=== PATIENT | female | born 1990 | race Caucasian/White ===

== ENCOUNTER 2017-12-24 09:58 | Emergency (ER) | payer OTHER ==
[2017-12-24 10:08] VITALS: BMI 36.3
--- NOTE | 2017-12-24 10:17 | PDOC ---
History of Present Illness - General Chief Complaint: Pain Stated Complaint: ABD PAIN/BACK PAIN Time Seen by Provider: 12/24/17 10:16 History Source: Patient Exam Limitations: Language Barrier - History of Present Illness Initial Comments: 12/24/17 10:51 27F with no PMH presents to the ER with a 4 day history of abdominal pain and a 3 hour history of vomiting. Patient states the vomiting began this morning at 7am and then she vomited again at 930am. The abdominal pain is epigastric and radiates to the back. She states the vomitus was green and yellow. She has been able to tolerate PO but did not eat or drink anything this AM because she vomited. She denies fever chills chest pain or shortness of breath. She denies diarrhea or constipation. She denies hematuria or dysuria. The patient recently had a laparoscopic cholecystectomy on 12/01/[address] Olson at [facility]. Past History - Travel Traveled outside of the country in the last 30 days: No Close contact w/someone who was outside of country & ill: No - Past Medical History Allergies/Adverse Reactions: Allergies Allergy/AdvReac Type Severity Reaction Status Date / Time No Known Allergies Allergy Verified 12/24/17 10:08 Home Medications: Ambulatory Orders NK [No Known Home Medication] 12/24/17 Anemia: No Asthma: No Cancer: No Cardiac Disorders: No Hx Myocardial Infarction: No CVA: No COPD: No Other medical history: denies - Immunization History Immunization Up to Date: Yes - Suicide/Smoking/Psychosocial Hx Smoking History: Never smoked Information on smoking cessation initiated: No Hx Alcohol Use: No Drug/Substance Use Hx: No Review of Systems - Review of Systems Able to Perform ROS?: Yes Is the patient limited Slovak proficient: Yes Constitutional: Yes: Chills HEENTM: Yes: Symptoms Reported Respiratory: Yes: Symptoms reported Cardiac (ROS): Yes: Symptoms Reported ABD/GI: Yes: Vomiting (bilious), Other (pain radiating to back) : No: Symptoms Reported, See HPI, Burning, Dysuria, Discharge, Frequency, Flank Pain, Hematuria, Incontinence, Pain, Urgency, Testicular Mass, Testicular Swelling, Lesions, Testicular Pain, Other Musculoskeletal: No: Symptoms Reported, See HPI, Back Pain, Gout, Joint Pain, Joint Swelling, Muscle Pain, Muscle Weakness, Neck Pain, Joint Stiffness, Other Integumentary: No: Symptoms Reported, See HPI, Bruising, Change in Color, Change in Hair/Nails, Dryness, Erythema, Flushing, Lesions, Lumps, Pallor, Pruritus, Rash, Sweating, Other Endocrine: No: Symptoms Reported, See HPI, Excessive Sweating, Flushing, Intolerance to Cold, Intolerance to Heat, Increased Hunger, Increased Thirst, Increased Urine, Unexplained Weight Gain, Unexplained Weight Loss, Change in Weight, Other *Physical Exam - Vital Signs Last Vital Signs Temp Pulse Resp BP Pulse Ox 98.1 F 86 20 115/62 99 12/24/17 10:04 12/24/17 10:04 12/24/17 10:04 12/24/17 10:04 12/24/17 10:04 - Physical Exam General Appearance: Yes: Appropriately Dressed, Obese, Other (comfortable in bed ). No: Apparent Distress HEENT: positive: EOMI. negative: Scleral Icterus (R), Scleral Icterus (L) Neck: positive: Trachea midline, Supple Respiratory/Chest: positive: Lungs Clear, Normal Breath Sounds. 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 Given recent laparoscopy cholecystectomy, physical exam. and history concern for gallstone pancreatitis. will do: CBC CMP Mg UA UCx Upreg 1 liter NS bolus IV tylenol Zofran reassess 12/24/17 11:40 spoke with [facility] surgeon who agrees with the plan for work up for retained stone and possible gallstone pancreatitis 12/24/17 12:59 Labs reviewed elevated WBC sount 12.4 LFTs elevated Surgeon called back and states LFTs were elevated and trending down before discharge. He informed me she had choledocholithiais and had an ERCP with stenting Will get CT scan to evaluate stent. will order MRCP will consult GI Surgeon Dr. Olson [phone] He would like to be called and updated 12/24/17 13:07 Patient signed out to Dr. Pham
[2017-12-24] MEDS ORDERED: SODIUM CHLORIDE 1,000 ML IV STA ×3 (10:31→20:11)
[2017-12-24] MEDS ORDERED: ONDANSETRON 4 MG/2 ML VIAL IVPUSH ONE ×2 (10:40→13:54)
[2017-12-24] MEDS ORDERED: ACETAMINOPHEN 1000 MG/100 ML VIAL (NON FORMULARY) IVPB ONE (10:40)
[2017-12-24] MEDS ORDERED: ACETAMINOPHEN INJECTION 100 ML IVPB ONE (10:56)
[2017-12-24] MEDS ORDERED: ONDANSETRON 4 MG/2 ML VIAL ONE ×2 (10:56→13:58)
[2017-12-24 10:57] LABS: BASO % 0.3 % (0-2.0); EOS % 0.4 % (0-4.5); HEMATOCRIT 37.2 % (32.4-45.2); HEMOGLOBIN 12.4 GM/dL (10.7-15.3); LYMPH % 12.6 % (8-40); MCH 26.9 pg (25.7-33.7); MCHC 33.2 g/dl (32.0-36.0); MEAN CELL VOLUME 80.9 fl (80-96); MEAN PLT VOLUME 7.7 fl (7.5-11.1); MONO % 5.4 % (3.8-10.2); NEUT % 81.3 % (42.8-82.8); PLATELET COUNT 361 K/MM3 (134-434); RDW 14.3 % (11.6-15.6); WHITE BLOOD COUNT 12.3 K/mm3 (4.0-10.0)
--- NOTE | 2017-12-24 11:01 | PDOC ---
Attending Attestation - Resident Resident Name: BonitaMeghanlily - ED Attending Attestation I have performed the following: I have examined & evaluated the patient, The case was reviewed & discussed with the resident, I agree w/resident's findings & plan, Exceptions are as noted - HPI HPI: 12/24/17 11:11 The patient is a 27 year old female with recent cholecystectomy 12/03/17 who presents to the emergency department for evaluation of epigastric pain. The patient reports a 4 day history of moderate epigastric pain radiating around the R flank. 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 Pt reports having 1 non bloody BM yesterday, denies diarrhea, constipation , and changes to color of stool. The patient denies chest pain, shortness of breath, headache, and dizziness. Denies fever, urinary frequency/urgency, dysuria, and hematuria. - Physicial Exam PE: 12/24/17 11:14 GENERAL: Awake, alert, and fully oriented, in no acute distress HEAD: No signs of trauma EYES: PERRLA, EOMI, sclera anicteric, conjunctiva clear ENT: Auricles normal inspection, hearing grossly normal, nares patent, oropharynx clear without exudates. Moist mucosa NECK: Normal ROM, supple, no lymphadenopathy, JVD, or masses LUNGS: Breath sounds equal, clear to auscultation bilaterally. No wheezes, and no crackles HEART: Regular rate and rhythm, normal S1 and S2, no murmurs, rubs or gallops ABDOMEN: Soft, +mild RUQ ttp with neg nava sign, +mild epigastric ttp, normoactive bowel sounds. No guarding, no rebound. No masses EXTREMITIES: Normal range of motion, no edema. No clubbing or cyanosis. No cords , erythema, or tenderness BACK: No midline spinal tenderness in cervical/thoracic/lumbar region NEUROLOGICAL: Normal speech, cranial nerves intact, negative pronator drift, 5/ 5 strength in all 4 extremities, normal sensation to light touch in all 4 extremities, normal cerebellar exam, normal gait, normal reflexes and tone SKIN: Warm, Dry, normal turgor, no rashes or lesions noted. - Medical Decision Making 12/24/17 10:55 27yo F recent cholecystectomy at [facility] presents to the ED with 8/10 recurrent epigastric radiating around the R flank pain. Vitals wnl. Exam with mild epigastric and RUQ ttp. DDx IBNLT retained stone, pancreatitis, gastritis. Plan: -upt -labs -discuss with [facility] surgeon -consider imaging -pain control -UA -reassess 12/24/17 13:56 Case discussed with surgeon from [facility] by Dr. Mesa Labs with elevated LFTs, leukocytosis 13 He reports pt also had a stent placed which pt was unaware of Recommends we consult our GI doc Case discussed with Dr. Matson who recommends MRI, asked us to call Dr. Dixon for the GI c/s Dr. Dixon c/s Recommends CTAP to evaluate stent After initial relief with tylenol, pt reports recurrent pain and had 1 episode of emesis BP also down to 90s systolic In light of her stent, recent instrumentation, white count to 13, borderline low BP, pt covered with zosyn Also given morphine, zofran fluids for sx control Pt on ED obs while CTAP is done 12/24/17 16:19 CTAP w stent migration Discussed with Dr. Dixon who recommends transfer to [facility] Case discussed with [facility] transfer center by Dr. Pham, pt accepted for transfer Pt currently at [facility] scan, once back will be consented
[2017-12-24 11:21] LABS: ALBUMIN 3.9 g/dl (3.4-5.0); ANION GAP 11 (8-16); BLOOD UREA NITROGEN 14 mg/dL (7-18); CALCIUM 9.3 mg/dL (8.5-10.1); CHLORIDE 109 mmol/L (98-107); CO2 24 mmol/L (21-32); CREATININE 0.7 mg/dL (0.55-1.02); GLUCOSE,RANDOM 91 mg/dL (74-106); MAGNESIUM 2.2 mg/dL (1.8-2.4); POTASSIUM 4.1 mmol/L (3.5-5.1); SGPT/ALT 348 U/L (12-78); SODIUM 144 mmol/L (136-145)
[2017-12-24 11:41] LABS: ALK PHOS 151 U/L (45-117); BILIRUBIN,TOTAL 0.9 mg/dL (0.2-1.0); TOT PROT 7.5 g/dl (6.4-8.2)
[2017-12-24 12:21] LABS: LIPASE 202 U/L (73-393); SGOT/AST 448 U/L (15-37)
[2017-12-24 12:54] LABS: HCG,QUALITATIVE URINE Negative
[2017-12-24 13:15] LABS: URINE APPEARANCE CLEAR; URINE BILIRUBIN NEGATIVE (<2.0 mg/dL); URINE COLOR AMBER; URINE GLUCOSE (UA) NEGATIVE (NEGATIVE); URINE KETONE NEGATIVE (NEGATIVE); URINE LEUK ESTERASE TRACE (NEGATIVE); URINE NITRITE NEGATIVE (NEGATIVE); URINE PROTEIN NEGATIVE (NEGATIVE)
[2017-12-24 13:19] LABS: EPI CELLS RARE /HPF (FEW); URINE MUCUS RARE
--- NOTE | 2017-12-24 13:25 | PDOC ---
*Physical Exam - Vital Signs Last Vital Signs Temp Pulse Resp BP Pulse Ox 98.5 F 61 20 94/58 100 12/24/17 13:07 12/24/17 13:07 12/24/17 13:07 12/24/17 13:07 12/24/17 13:07 ED Treatment Course - LABORATORY CBC & Chemistry Diagram: 12/24/17 10:50 12/24/17 10:50 - ADDITIONAL ORDERS Additional order review: Laboratory Results 12/24/17 12/24/17 12:40 10:50 Sodium 144 Potassium 4.1 Chloride 109 H Carbon Dioxide 24 Anion Gap 11 BUN 14 Creatinine 0.7 Creat Clearance w eGFR > 60 Random Glucose 91 Calcium 9.3 Magnesium 2.2 Total Bilirubin 0.9 AST 448 H ALT 348 H Alkaline Phosphatase 151 H Total Protein 7.5 Albumin 3.9 Lipase 202 Urine Color Sol Urine Appearance Clear Urine pH 6.0 Ur Specific [place] 1.029 Urine Protein Negative Urine Glucose (UA) Negative Urine Ketones Negative Urine Blood Negative Urine Nitrite Negative Urine Bilirubin Negative Urine Urobilinogen 2.0 H Ur Leukocyte Esterase Trace Urine WBC (Auto) 3 Urine RBC (Auto) 2 Ur Epithelial Cells Rare Urine Mucus Rare Urine HCG, Qual Negative 12/24/17 10:50 RBC 4.60 MCV 80.9 MCHC 33.2 RDW 14.3 MPV 7.7 Neutrophils % 81.3 Lymphocytes % 12.6 Monocytes % 5.4 Eosinophils % 0.4 Basophils % 0.3 - Medications Given in the ED: ED Medications Discontinued Medications Generic Name Dose Route Start Last Admin Trade Name Roryq PRN Reason Stop Dose Admin Acetaminophen 1,000 mg 12/24/17 10:40 12/24/17 11:11 Ofirmev Injection - IVPB 12/24/17 10:41 1,000 mg ONCE ONE Administration Sodium Chloride 1,000 mls @ 1,000 mls/hr 12/24/17 10:31 12/24/17 11:11 Normal Saline - IV 12/24/17 11:30 1,000 mls/hr ASDIR STA Administration Ondansetron HCl 4 mg 12/24/17 10:40 12/24/17 11:11 Zofran Injection IVPUSH 12/24/17 10:41 4 mg ONCE ONE Administration Medical Decision Making - Medical Decision Making 12/24/17 13:[address] Mesa. Patient is 27F s/p cholecystectomy and stent placement in December 02 here today with RUQ abdominal pain, bilious vomiting. Labs notable for elevated LFTs. Concern for stent migration. Pending CT. GI consult placed, pending callback. 12/24/17 23:57 CT shows migrated stent into duodenum. Accepted for Transfer by Dr Olson to [facility]. *DC/Admit/Observation/Transfer Diagnosis at time of Disposition: Biliary stent migration - Discharge Dispostion Disposition: TRANSFER ACUTE CARE/OTHER HOSP Condition at time of disposition: Stable Decision to Admit order Date/Time: Decision to Admit Order Category Date Time Status Decision to Admit to Hospital Routine Admission 12/24/17 13:23 Ordered - Referrals - Patient Instructions - Post Discharge Activity - Transfer to Acute Care Facility Receiving Facility: Other hosp. not listed ([facility] [place])
[2017-12-24] MEDS ORDERED: PIPERACILLIN/TAZOB 4.5 GM 4.5 GM in DEXTROSE 5%-WATER - 100 ML IVPB ONE (13:54)
[2017-12-24] MEDS ORDERED: morphine CARPU-JECT 4 MG/1 ML DISP.SYRIN IVPUSH ONE (13:54)
[2017-12-24] MEDS ORDERED: PIPERACILLIN/TAZOB 4.5 GM 4.5 GM/100 ML BAG IVPB ONE (13:58)
[2017-12-24] MEDS ORDERED: morphine SULFATE 4 MG/ML VIAL ONE (13:58)
--- NOTE | 2017-12-24 14:39 | CON.GI ---
Consult Consult Specialty:: GI Reason for Consultation:: RUQ pain s/p bessie 12/03/17 @ [facility] - History of Present Illness History of Present Illness: Chart reviewed. Events and ED notes noted per initialintake: The patient is a 27 year old female with recent cholecystectomy 12/03/17 who presents to the emergency department for evaluation of epigastric pain. The patient reports a 4 day history of moderate epigastric pain radiating around the R flank. 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 Pt reports having 1 non bloody BM yesterday, denies diarrhea, constipation, and changes to color of stool. The patient denies chest pain, shortness of breath, headache, and dizziness. Denies fever, urinary frequency/urgency, dysuria, and hematuria. Per ED documentation the pt also had CBD stent placed. US of the RUQ showed s/p cholecystectomy, hepatomegaly and CBD of 8 mm, no mentioning of the stent. - Alcohol/Substance Use Hx Alcohol Use: No - Smoking History Smoking history: Never smoked Home Medications - Allergies Allergies/Adverse Reactions: Allergies Allergy/AdvReac Type Severity Reaction Status Date / Time No Known Allergies Allergy Verified 12/24/17 10:08 - Home Medications Home Medications: Ambulatory Orders NK [No Known Home Medication] 12/24/17 Family Disease History - Family Disease History Family History: Unremarkable Review of Systems Findings/Remarks: as per HPI Physical Exam-GI Vital Signs: Vital Signs Temperature 98.5 F 12/24/17 13:07 Pulse Rate 61 12/24/17 13:07 Respiratory Rate 20 12/24/17 13:07 Blood Pressure 94/58 12/24/17 13:07 O2 Sat by Pulse Oximetry (%) 100 12/24/17 13:07 Labs: CBC, BMP 12/24/17 10:50 12/24/17 10:50 Imaging - Results Cat Scan: Pending Ultrasound: Report Reviewed MRI: Pending Problem List - Problems (1) Abdominal pain Code(s): R10.9 - UNSPECIFIED ABDOMINAL PAIN Assessment/Plan A 27F with recent cholecystectomy presents with RUQ pain, nausea, vomiting, leukocytosis, transaminitis, elevated ALP and normal Bili and Lipase. R/O CBD obstruction, bile leak. NPO, IVF, antienemtics, pain management. MRCP, HIDA. Nick and flagyl. ID consult ERCP per imaging
[2017-12-24] MEDS ORDERED: LORazepam 2 MG/ML SDV VIAL ONE (15:24)
--- NOTE | 2017-12-24 15:57 | PN ---
Progress Note (short form) - Note Progress Note: CT findings noted. No ERCP available today. Advised ED attending to reach out to the pt's surgeon at [facility] for transfer and urgent ERCP there. Continue Abx and obtain HIDA to r/o leak while awaiting transfer. Close monitoring for worsening signs of cholangitis Problem List - Problems (1) Abdominal pain Code(s): R10.9 - UNSPECIFIED ABDOMINAL PAIN
[2017-12-24 21:27] VITALS: BP 138/98; PULSE 98; TEMP 99.9
== END 2017-12-24 21:28 | disposition short-term general hospital (02) ==
LOC: JER 09:58 → UNDOADMOB 13:23 → JERBED 13:23
PROC: 3E033NZ Introduction of Analgesics, Hypnotics, Sedatives into Peripheral Vein, Percutaneous Approach (ICD-10-PCS; principal; 2017-12-24)
PROC: 3E03329 Introduction of Other Anti-infective into Peripheral Vein, Percutaneous Approach (ICD-10-PCS; 2017-12-24)
PROC: 3E033GC Introduction of Other Therapeutic Substance into Peripheral Vein, Percutaneous Approach (ICD-10-PCS; 2017-12-24)
PROC: 3E0337Z Introduction of Electrolytic and Water Balance Substance into Peripheral Vein, Percutaneous Approach (ICD-10-PCS; 2017-12-24)
DX: T85.898A Other specified complication of other internal prosthetic devices, implants and grafts, initial encounter (principal); Z90.49 Acquired absence of other specified parts of digestive tract
CPT/HCPCS: 36415; 74177-TC; 76705-TC; 78226-TC; 80053; 81003; 81015; 83690; 83735; 84703; 85025; 87086; 99284-25; A9537; J0131; J7030

== ENCOUNTER 2021-03-24 01:55 | Emergency (ER) | payer OTHER ==
[2021-03-24 01:05] VITALS: BP 151/86; PULSE 89; TEMP 97.2
[2021-03-24] MEDS ORDERED: ACETAMINOPHEN 325 MG TABLET (FP) PO ONE (02:24)
[2021-03-24] MEDS ORDERED: ACETAMINOPHEN 325 MG TABLET (FP) ONE (02:28)
[2021-03-24] MEDS ORDERED: LIDOCAINE 5% TOPICAL PATCH TP ONE (06:23)
[2021-03-24] MEDS ORDERED: IBUPROFEN 400 MG TABLET (FP) PO ONE ×2 (06:23→06:31)
[2021-03-24] MEDS ORDERED: LIDOCAINE 5% TOPICAL PATCH ONE (06:31)
[2021-03-24] MEDS ORDERED: LIDOCAINE PATCH REMOVAL MC SCH (22:00)
== END 2021-03-24 06:42 | disposition home or self-care (01) ==
LOC: JER 01:55
DX: S39.012A Strain of muscle, fascia and tendon of lower back, initial encounter (principal); V49.50XA Passenger injured in collision with unspecified motor vehicles in traffic accident, initial encounter
CPT/HCPCS: 70450-TC; 71046-TC-FY; 72125-TC; 72131-TC; 73562-TC-RT-FY; 84703; 99285-25